=== PATIENT | female | born 1965 | race Two or more races ===

== ENCOUNTER 2016-11-27 19:51 | Observation (INO) | payer SELFPAY ==
[2016-11-27 20:51] LABS: ABSOLUTE NEUTROPHIL COUNT 9.7 K/mm3 (1.8-7.7); BASO % 0.2 % (0.2-1.0); EOS % 0.2 % (0.9-2.9); HEMATOCRIT 22.4 % (37.0-47.0); IMM NEUT # 0.1 K/mm3 (0-0.2); IMM NEUT% 0.4 % (0-1); LYMPH # 1.8 (1.0-4.8); MEAN CELL VOLUME 61.2 fl (81.0-99.0); MEAN CORPUSCULAR HEMOGLOBIN 15.3 pg (27.0-31.0); MEAN PLATELET VOLUME 9.4 fl (7.4-10.4); MONO # 1.5 (0.0-0.8); MONO % 11.3 % (4-12); NEUT % 73.9 % (43-75); PLATELET COUNT 316 K/mm3 (130-400); RED CELL DISTRIBUTION WIDTH 19.3 % (11.5-14.5)
[2016-11-27 20:57] LABS: HEMOGLOBIN 5.6 gm/l (12.0-16.0)
[2016-11-27 20:59] LABS: INR 0.98; PROTHROMBIN TIME 10.3 SECONDS (9.3-11.4)
[2016-11-27 21:03] LABS: ALBUMIN 3.5 gm/dL (3.5-5.7); CALCIUM 8.8 mg/dL (8.6-10.3)
--- NOTE | 2016-11-27 21:05 | RAD ---
History: Weakness. Comparison: 12/19/2015. Technique: 2 views Findings: 2 views of the chest demonstrate multilevel thoracic degenerative changes. The heart size is borderline prominent though appears to be stable from the appearance on prior exam. No consolidation, effusion or pneumothorax is seen. The hilar and mediastinal structures are stable. Impression: 1. Borderline cardiac size. 2. Multilevel thoracic degenerative changes.
[2016-11-27 21:19] LABS: ANISOCYTOSIS 1+; HYPOCHROMIA 3+; PLATELET ESTIMATE NORMAL (NORMAL)
[2016-11-27] MEDS ORDERED: PANTOPRAZOLE SODIUM 40 MG VIAL IV ONE (21:22)
[2016-11-27] MEDS ORDERED: SODIUM CHLORIDE 0.9% 500 ML IV PRN (21:49)
[2016-11-27] MEDS ORDERED: BLISTEX LIPSTICK 1 EACH TP PRN (21:52)
[2016-11-27] MEDS ORDERED: MENTHOL/CETYLPYRD 1 EACH LOZENGE PO PRN (21:52)
[2016-11-27] MEDS ORDERED: SODIUM CHLORIDE 0.9% 100 ML IV PRN (21:52)
[2016-11-27] MEDS ORDERED: ACETAMINOPHEN 325 MG TABLET PO PRN (21:52)
[2016-11-27 22:52] VITALS: BMI 32.9
[2016-11-27] MEDS ORDERED: BLOOD Y PLUMSET W/CASSETTE ONE (23:04)
[2016-11-27] MEDS ORDERED: SODIUM CHLORIDE 0.9% 500 ML ONE (23:04)
[2016-11-28] MEDS ORDERED: PUMP TUBING ONE (00:17)
[2016-11-28] MEDS ORDERED: BLOOD Y PLUMSET W/CASSETTE ONE ×2 (01:56→15:09)
[2016-11-28] MEDS: LACTATED RINGERS 1,000 ML IV SCH ×2 (04:13→10:53)
--- NOTE | 2016-11-28 06:25 | HP ---
LISETH ROSARIO [id number] : 1965 DATE OF ADMISSION: November 27, 2016 IDENTIFICATION: Ms. Rosario is a 51-year-old followed by Dr. Diego. CHIEF COMPLAINT: Feeling dizzy. HISTORY OF PRESENT ILLNESS: Ms. Rosario reports an extended period of feeling weak, dizzy and having poor exercise tolerance. She has previously been diagnosed with anemia and, in fact, received a transfusion of one unit of packed red blood cells in our emergency department last June or July, but did not have any further workup at that time. She went to urgent care today and was told that she was anemic and directed to come to the emergency department. On evaluation in the emergency department, she was found to have a hemoglobin of 5.6, hematocrit 22.4, and she was referred to the hospitalist service for transfusion. She does report frequent dyspepsia and reflux symptoms and has been taking asgl-yru-lguwkkd ranitidine which is somewhat helpful. She also reports heavy menstrual bleeding. REVIEW OF SYSTEMS: HEENT: Dizzy and lightheaded, sometimes faint almost to the point of passing out. She has had a headache today. No problems with ears, eyes, nose or throat. RESPIRATORY: Dyspnea especially with activity, no cough. CARDIAC: No chest pain or palpitations. GASTROINTESTINAL: Frequent dyspepsia and reflux symptoms. No nausea or vomiting. She denies diarrhea, constipation, hematochezia or melena. GENITOURINARY: Chronic frequency, no dysuria. Regular heavy menstrual periods lasting seven days and passing a lot of clots. Last menstrual period started November 01, 2016. MUSCULOSKELETAL: She has had swelling in her hands and feet in the last few days. CONSTITUTIONAL: Reports chills and always feeling cold. No recent weight change. PAST MEDICAL HISTORY: 1. Hiatal hernia and gastritis. She says this was diagnosed by CT scan and that she has not previously had endoscopy. 2. Anemia. 3. Anxiety. 4. Degenerative disc disease. PAST SURGICAL HISTORY: None. ALLERGIES: NONE. MEDICATIONS: She is not on any prescription medication but she does say that she takes ytxk-eko-jyopcrp ranitidine two to three tablets two to three times a day. HABITS: No current or past tobacco, alcohol or drugs. SOCIAL HISTORY: She lives in [place] with her daughters. She is single. FAMILY HISTORY: Positive for diabetes, hypothyroidism, hypertension and cerebrovascular disease. PHYSICAL EXAMINATION: GENERAL: This is a pleasant, mildly anxious, 51-year-old. She does appear pale. VITAL SIGNS: Temperature 99.5 degrees Fahrenheit, blood pressure 123/83, pulse 102, respiratory rate 16, oxygen saturation 100% on room air. HEENT: Pupils are equal, round and reactive. Extraocular muscles are intact. Oropharynx is moist. Full upper and lower artificial dentures in place. NECK: No adenopathy or thyromegaly. CHEST: Clear to auscultation. HEART: Is regular with 1 to 2/6 systolic murmur. ABDOMEN: Soft, there is no epigastric tenderness or tenderness elsewhere. Normal bowel tones. No organomegaly. EXTREMITIES: Trace edema in all four extremities. Good peripheral pulses. No cyanosis or clubbing. NEUROLOGIC: Alert and oriented. No focal motor deficits. LABORATORY DATA: White blood cell count is 13.2, hemoglobin and hematocrit 5.6 and 22.4, platelets 316. INR is 0.98. Sodium 138, potassium 3.8, chloride 105, CO2 24, BUN14, creatinine 0.8, glucose 136, albumin is 3.5, globulin 3.6. Liver enzymes are normal. RADIOLOGY: Chest x-ray, borderline cardiomegaly. Multilevel thoracic degenerative changes. ELECTROCARDIOGRAM: Electrocardiogram reported to show right bundle branch block. I have not been able to review that personally. ASSESSMENT: Ms. Rosario is a 51-year-old with symptomatic critical anemia. This could be due to gastrointestinal bleeding with her significant dyspepsia complaints or due to her heavy menstrual bleeding. PLAN: 1. Refer to observation on medical/surgical floor. 2. Transfuse two units packed red blood cells, PARQ conference held. 3. Check iron studies anticipating she will show iron deficiency and check TSH for thyroid function. 4. Consider consultation for upper endoscopy. 5. FULL CODE status. 6. Venous thromboembolism prophylaxis is not indicated. 7. She was started on pantoprazole in the emergency department. We will continue that treatment. 8. Check stool for occult blood.
[2016-11-28 06:27] LABS: HEMATOCRIT 24.6 % (37.0-47.0); HEMOGLOBIN 6.8 gm/l (12.0-16.0)
[2016-11-28] MEDS ORDERED: LIDOCAINE Viscous 2% 15 ML UDCUP ONE (07:54)
[2016-11-28] MEDS ORDERED: FENTANYL 100 MCG/2 ML VIAL ONE (07:54)
[2016-11-28] MEDS ORDERED: MIDAZOLAM HCL 5 MG/5 ML VIAL ONE (07:54)
[2016-11-28] MEDS ORDERED: LACTATED RINGERS 1,000 ML ONE (08:22)
[2016-11-28] MEDS ORDERED: PROPOFOL 20 ML IV ONE (08:31)
[2016-11-28] MEDS ORDERED: PANTOPRAZOLE 40 MG TABLET DR PO SCH (09:00)
--- NOTE | 2016-11-28 09:34 | PDOC36 ---
Provider Note Subject: [facility] Consultation Note: 51yo para-9, admitted last night with severe anemia. Pt had upper endoscopy this AM with no obvious source of bleeding. Pt denies any bloody stools. Pt reports having had heavy periods - with blood clots. Pt has regular interval monthly menses, however with heavy bleeding, and last 7-14 days, since 7 months ago. Pt had not had any workup for this. LMP 11/01/16 POBGYNx: Pt has had vaginal delivery x 9, denies abnormal pap / STDs. Had in her history taken OCPs and implant for contraception PMH: Anemia PSH: denies Meds: Iron Exam: Alert, appropriate, generally pale Heart: regular rate & rhythm Lungs: CTAB Abdomen: soft, nontender, nondistended, normal bowel sounds, no masses Pelvic: uterus mobile, nontender, 6w size, anteverted, no adnexal masses, no discharge/lesions, cervix palpably smooth Ext: nontender Recommendations: Hgb=6.8 this AM - would recommend transfusion 2 more units Start oral contraceptives on discharge - to start first day of next period Check pelvic ultrasound f/u with [facility] as outpatient Laboratory Tests 11/27/16 11/28/16 20:30 05:30 WBC 13.2 H RBC 3.66 L Hgb 5.6 L* 6.8 L Hct 22.4 L 24.6 L MCV 61.2 L MCH 15.3 L MCHC 25.0 L RDW 19.3 H Plt Count 316 Neut % (Auto) 73.9 Lymph % (Auto) 14.0 L Marin % (Auto) 11.3 Baso % (Auto) 0.2 Absolute Neuts (auto) 9.7 H Eosinophils % 0.2 L Hypochromia 3+ Platelet Estimate Normal Anisocytosis 1+ Microcytosis 3+ PT 10.3 INR 0.98 Sodium 138 Potassium 3.8 Chloride 105 Carbon Dioxide 24 Anion Gap 13 BUN 14 Creatinine 0.8 Estimated GFR 76 BUN/Creatinine Ratio 18 Glucose 136 H Calcium 8.8 Iron 11 L Ferritin 6.7 L Total Bilirubin 0.5 AST 16 ALT 12 Alkaline Phosphatase 59 Total Protein 7.1 Albumin 3.5 Globulin 3.6 H Albumin/Globulin Ratio 1.0 TSH 0.95 % Immature Granulocyt 0.4 Blood Type O POSITIVE Antibody Screen Negative Crossmatch See Detail
--- NOTE | 2016-11-28 10:06 | CONS ---
FRANCINE ROSARIO [id number] DATE OF CONSULTATION: November 28, 2016 CONSULTING PHYSICIAN: Jarad Jason M.D. REASON FOR CONSULTATION: 1. Anemia. 2. Acid reflux with dysphagia. HISTORY OF PRESENT ILLNESS: Francine Rosario is a 51-year-old female who was seen in the hospital in consultation on November 28, 2016. She was admitted last night with symptoms of dizziness. She was found to be profoundly anemic. She reports a history of fdc acid reflux. She reports dysphagia that has been going on for a long time. She reports no hematemesis. She has had no weight loss. She has had no obvious blood in her stools. She takes ranitidine two or three tablets up to three times a day. She has been told she has a hiatal hernia. She also has had heavy menstrual periods. To this point in her hospitalization, she has received two units of blood and her hemoglobin has changed from 5.6 to 6.8. She has had no blood per rectum or even melanotic stool. PAST MEDICAL HISTORY: 1. Anemia. 2. Anxiety. 3. Degenerative disc disease. PAST SURGICAL HISTORY: Tubal ligation. CURRENT MEDICATIONS: Ranitidine. ALLERGIES: NONE KNOWN. FAMILY HISTORY: Diabetes, hypertension, strokes. SOCIAL HISTORY: She has her son with her. She is single. She denies alcohol, tobacco or drug use. REVIEW OF SYSTEMS: CONSTITUTIONAL: No fevers or weight loss. EYES: No complaints. ENT: No complaints. PULMONARY: Dyspnea with exertion. CARDIAC: No complaints. GASTROINTESTINAL: As above. GENITOURINARY: No complaints. GYNECOLOGIC: As above. MUSCULOSKELETAL: She has had some swelling in her hands and feet. NEUROLOGIC: No complaints. ENDOCRINE: Always feels cold. PSYCHIATRIC: No complaints. PHYSICAL EXAM: VITAL SIGNS: Temperature is 98.4, pulse 90, blood pressure 104/63, respirations 18, oxygen saturation is 97% on room air. GENERAL: She is awake, alert, is in no distress. HEENT: Head atraumatic, normocephalic. Pupils are equal. Sclera nonicteric. Oropharynx, she has upper and lower dentures. No exudate or erythema seen. NECK: Is supple without lymphadenopathy or thyromegaly. LUNGS: Clear to auscultation bilaterally. Normal respiratory effort. HEART: Regular rate and rhythm. No murmurs are heard. ABDOMEN: Soft, nondistended. She has mild tenderness to palpation in the left upper quadrant. No masses are palpable. No organomegaly appreciated. PELVIC: Not performed. RECTAL: Not performed. EXTREMITIES: Show no cyanosis, clubbing or edema. NEUROLOGIC: She is alert, oriented. Sensation grossly intact at all extremities. PSYCHIATRIC: Shows no signs of anxiety or depression. Appears able to make informed medical decisions. LABORATORIES: White blood cell count on admission was 13.2, hemoglobin on admission was 5.6 now 6.8 this morning, platelets 316. Prothrombin time is 10.3, INR is 1. Sodium 138, potassium 3.8, chloride 105, carbon dioxide is 24, BUN is 14, creatinine 0.8, glucose 136, calcium 8.8. Iron is low at 11, ferritin is low at 6.7, total bilirubin 0.5, AST 16, ALT 12, alkaline phosphatase 59, albumin 3.5, TSH is 0.95. ASSESSMENT: 1. Anemia. 2. Acid reflux with dysphagia. 3. Dysmenorrhea. PLAN: We will take her for upper endoscopy this morning. We discussed the procedure. We discussed the risks of bleeding and infection and intestinal perforation. I told her with dysphagia that sometimes we can find a stricture that we can dilate. In the setting of acute anemia for a diagnostic procedure, I would not recommend that we try and dilate anything. She expressed understanding and gives informed consent. Cc: Gregory Diego M.D. Abdoul Jason M.D.
[2016-11-28] MEDS: SUCRALFATE 1 G TABLET PO SCH ×2 (10:53→16:32)
--- NOTE | 2016-11-28 13:50 | US ---
Name: LISETH ROSARIO Exam: Pelvic ultrasound Comparison: None Clinical history: Chronic anemia and menorrhagia Findings: Transabdominal and endovaginal imaging of the pelvis was performed. Visualized bladder is normal. Uterus is enlarged at 9.9 x 7.2 x 5.1 cm. The myometrium is very heterogeneous which may reflect minimal tiny leiomyomas, adenomyosis or a combination of the two. The endometrium is approximately 11 mm thick and is best seen endovaginally. The endometrium is heterogeneous and contains several tiny cystic spaces. Also, within the uterine cavity, there is a trace amount of fluid within the lower uterine segment and endocervical canal. Several small the both in cysts are present. There is minimal/physiologic free fluid. The right ovary measures 3.8 x 2.4 x 2.1 cm with a volume of 9.9 cc. The left ovary measures 4.5 x 2.9 x 2.6 centers with a volume of 17.6 cc. Small follicles are identified bilaterally. The left contains a dominant cyst measuring 2.6 x 2.2 x 1.9 cm. There is no torsion. Impression: 1. Mildly enlarged very heterogeneous uterus. Differential considerations include many small leiomyomas, adenomyosis or a combination of the two 2. Heterogeneous endometrium with multiple tiny cystic spaces. Cystic glandular hyperplasia is a consideration. Endometrial carcinoma is not excluded on this exam 3. 2.6 cm simple left ovarian cyst 4. Trace/normal free fluid within the pelvis Note: The above report was uploaded to [facility]'s electronic medical records system at 1345 hours.
[2016-11-28] MEDS ORDERED: SODIUM CHLORIDE 0.9% 500 ML IV PRN (14:17)
--- NOTE | 2016-11-28 14:17 | PDOC43 ---
- Subjective Chief Complaint: Anemia, menorrhagia. Patient reports tolerating blood well, but still kind of short of breath. Hb not above 7 yet. She would accept another unit of blood, but wishes to go home today. She reports tolerating OCP in the past well. She states she has had some problems tolerating iron orally. Notes pica (patrice). - Objective Vital Signs Temperature 98.7 F 11/28/16 13:57 Pulse Rate 90 11/28/16 13:57 Respiratory Rate 16 11/28/16 13:57 Blood Pressure 121/71 11/28/16 13:57 O2 Saturation by Pulse Oximetry 99 11/28/16 13:57 Oxygen Delivery Method Room Air Oxygen Flow Rate 0 Vital Signs Last 12 Hours Temp Pulse Resp BP Pulse Ox 11/28/16 13:57 98.7 F 90 16 121/71 99 11/28/16 13:36 16 11/28/16 11:03 72 124/80 99 11/28/16 10:38 80 119/76 99 11/28/16 10:03 75 119/67 98 11/28/16 09:33 75 117/75 98 11/28/16 09:03 97.8 F 75 16 99/58 97 11/28/16 08:00 98.4 F 90 18 104/63 97 11/28/16 07:25 16 11/28/16 03:54 97.9 F 90 16 109/70 100 11/28/16 03:24 98.8 F 90 16 117/69 100 11/28/16 02:54 98.0 F 85 16 109/70 100 11/28/16 02:24 98.9 F 86 16 109/70 100 11/28/16 02:09 98.9 F 86 16 107/66 100 Intake and Output 11/26/16 11/27/16 11/28/16 23:59 23:59 23:59 Intake Total 14 615 Output Total 450 Balance 14 165 General: Alert, Cooperative, No Acute Distress Lungs: Clear to Auscultation Bilaterally, Normal Air Movement Cardiovascular: Regular Rate and Rhythm Abdomen: Soft, Normal Bowel Sounds, No Distention Extremities: Edema Skin: No Normal Color (still pale.) Neurological: Normal Speech Psych/Mental Status: Normal Affect, Normal Mood Laboratory 11/28/16 05:30 Laboratory Tests 11/27/16 20:30 Iron 11 L Ferritin 6.7 L TSH 0.95 Current Medications: Current meds reviewed in EMR. Active Medications Acetaminophen (Tylenol) 650 mg PO Q6H PRN PRN Reason: Pain or Temperature > 100.5 F Benzocaine/Menthol (Cepacol) 1 each PO PRN PRN PRN Reason: Sore Throat Sodium Chloride (Sodium Chloride 0.9%) 500 mls @ 25 mls/hr IV .Q20H PRN PRN Reason: Blood Transfusion Last Admin: 11/27/16 23:13 Dose: 25 mls/hr Sodium Chloride (Sodium Chloride 0.9%) 100 mls @ 25 mls/hr IV PRN PRN PRN Reason: Flush Lactated Ringer's (Lactated Ringers) 1,000 mls @ 100 mls/hr IV .Q10H JUSTYN Last Admin: 11/28/16 10:53 Dose: Not Given Pantoprazole Sodium (Protonix) 40 mg PO DAILY [facility] Last Admin: 11/28/16 10:53 Dose: 40 mg Petrolatum/Paraffin/Mineral Oil (Blistex) 1 each TP PRN PRN PRN Reason: Dry and/or chapped lips Sodium Chloride (Normal Saline 10ml Flush) 10 ml IV Q8HR JUSTYN Last Admin: 11/28/16 10:53 Dose: Not Given Sodium Chloride (Normal Saline 10ml Flush) 10 ml IV PRN PRN Last Admin: 11/28/16 12:41 Dose: 10 ml Sucralfate (Carafate) 1 g PO ACBEDTIME [facility] Last Admin: 11/28/16 10:53 Dose: 1 g - Problems: Assessment/Plan (1) Anemia Qualifiers: Anemia type: iron deficiency Iron deficiency anemia type: chronic blood loss Qualifier Code: (D50.0) Iron deficiency anemia secondary to blood loss (chronic) Status: ChronicAssessment/Plan: Given 2 units PRBC. Anticipate iron supplementation, with dose Venofer, and one add'l unit of blood as her Hb is still low and she looks pale. (2) Menorrhagia Qualifiers: Menorrahagia type: with regular cycle Qualifier Code: (N92.0) Excessive and frequent menstruation with regular cycle Status: Chronic Assessment/Plan: Ultrasound reported normal, appreciate Dr Barnett's consultation. He recommends outpt follow up, will be on OCP for period control. VTE Prophylaxis: n/a Disposition: anticipate DC to home.
[2016-11-28] MEDS ORDERED: FERROUS GLUCONATE (38 Fe) 324 MG TABLET PO SCH (14:30)
[2016-11-28] MEDS ORDERED: IRON SUCROSE COMPLEX 200 MG in SODIUM CHLORIDE 0.9% 100 ML IV ONE (14:30)
[2016-11-28] MEDS ORDERED: SODIUM CHLORIDE 0.9% 500 ML ONE (15:09)
[2016-11-28 16:29] LABS: HELICOBACTER PYLORII DETECTION NEGATIVE (NEGATIVE)
[2016-11-28 17:36] VITALS: BP 111/78
--- NOTE | 2016-11-29 07:23 | DS ---
LISETH ROSARIO [id number] DATE OF ADMISSION: November 27, 2016 DATE OF DISCHARGE: November 28, 2016 DISCHARGE DIAGNOSES: Are: 1. Severe iron deficiency anemia. 2. 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 Jackson. 3. Right bundle branch block. 4. Reported dysmenorrhea. Pelvic ultrasound showing heterogenous uterus as well as heterogenous endometrium. 5. History of degenerative disc disease. 6. History of anxiety. REASON FOR ADMISSION: The patient is 51-year-old female with an extended period of feeling weak and dizzy and low activity tolerance. She had been previously diagnosed with anemia and received a transfusion of one unit in the fall of 2015, but did not have any further workup. She went to the urgent care the day of admission and was told she was anemic and directed to come to the emergency department. In the emergency room she was noted to have a hemoglobin of 5.6, hematocrit 22.4, and was referred to the hospitalist service for transfusion. Her MCV was 61.2 with an RDW of 19.3, INR 0.98, electrolytes normal, glucose 136, iron 11, ferritin 6.7, TSH 0.95. Hospitalist service admitted her and started her on two units of packed red blood cells transfusion. She was referred to Dr. Finesse Jackson who performed an upper endoscopy that showed a normal duodenum, biopsy was taken, a polyp found at the gastric antrum, biopsy taken, gastroesophageal junction was visualized, a hiatal hernia found in the esophagus with a severe esophagitis seen, biopsy taken, and Gloria's esophagus changes noted. Her Helicobacter pylori biopsy was negative. A transvaginal ultrasound was done to evaluate her complaints of heavy periods, and it showed mildly enlarged very heterogenous uterus. Differential considerations include many small leiomyoma, adenomyosis or a combination of the two, heterogenous endometrium with multiple tiny cystic spaces was noted, cystic glandular hyperplasia is a consideration. Endometrial carcinoma is not excluded on this exam. A 2.6 cm simple left ovarian cyst and trace normal free fluid in the pelvis. Consultation with Dr. Reynaldo Barnett was performed, and he performed an exam and recommended starting oral contraceptives on discharge to start the first day of the next period, and to follow up with gynecology as an outpatient along with checking the pelvic ultrasound. He also recommended transfusion of additional units. Her followup hemoglobin after transfusion went from 5.6 to 6.8. One unit was available so this was transfused but patient was exceedingly eager to be discharged so a second unit will not be able to be given at this time. She did receive 200 mg Venofer intravenous and appeared to have tolerated all this fairly well. She is anticipated to be discharged to home tonight. DISCHARGE MEDICATIONS: Are anticipated to be: 1. Ferrous gluconate 325 mg orally twice daily but substitution of any other iron is acceptable if she can tolerate this. 2. Ortho Novum 135/[address] Barnett. 3. Pantoprazole 40 mg orally daily is recommended for her to replace the Zantac she has been taking. 4. Carafate 1 gr orally before meals and at bedtime is prescribed. FOLLOWUP: Followup is requested with Dr. Reynaldo Barnett in the next two weeks and is requested she follow up with Dr. Diego for consideration of a repeat blood count. Dr. Jackson's office will call with biopsy results. She is also advised to consider colonoscopy as well as she is nearing age 52. She is advised to avoid smoking, avoid antiinflammatories. She is to return sooner if having weakness or shortness of breath as noted before. Cc: Gregory Diego M.D. Finesse Jackson M.D. Reynaldo Barnett M.D.
--- NOTE | 2016-12-02 12:27 | SURGPATH ---
[facility] [address] [place] [address] Patient Name: LISETH ROSARIO MR#: [id number] : 1965 Gender: F Specimen #: [id number] Collected: 11/28/2016 Received: 11/30/2016 Reported: 12/02/2016 Submitting Phys: HAVEN ELMORE Copy To Phys: KENYATTA EVANS [facility] SH[facility] GALVAN Clinical History / Pre-Operative Diagnosis: ANEMIA Specimen Source / Surgical Procedure Performed: #1-DUODENUM BIOPSY; #2-ANTRUM BIOPSY; #3-GASTRIC POLYP IN ANTRUM; #4-DISTAL ESOPHAGUS BIOPSY AT 30 CM Interpretation: 1. DUODENUM, BIOPSY: - PEPTIC DUODENITIS 2. STOMACH, ANTRUM, BIOPSY: - MODERATE CHRONIC NON-ATROPHIC GASTRITIS WITH MULTIFOCAL ACTIVITY - FOCAL INTESTINAL METAPLASIA; NO DYSPLASIA SEEN - NO HELICOBACTER ORGANISMS BY IMMUNOHISTOCHEMISTRY 3. STOMACH, ANTRUM, POLYP, BIOPSY: - MODERATE CHRONIC NONATROPHIC GASTRITIS WITH MULTIFOCAL ACTIVITY - REACTIVE FOVEOLAR HYPERPLASIA - NO HELICOBACTER ORGANISMS SEEN ON ROUTINE STAIN 4. ESOPHAGUS, DISTAL, BIOPSY: - ACUTE ESOPHAGITIS WITH ULCERATION AND MARKED REACTIVE CHANGES Electronically Signed Out By Rachel Mensah M.D. For Monique Clifford M.D. Gross Description: #1 The specimen is received in a formalin filled container labeled with the patient's name and "duodenum biopsy". Two siddiqui biopsies are 0.4 and 0.5 cm. Totally embedded in cassette #1. #2 The specimen is received in a formalin filled container labeled with the patient's name and "antral biopsy". Two siddiqui biopsies are 0.2 and 0.3 cm. Totally embedded in cassette #2. #3 The specimen is received in a formalin filled container labeled with the patient's name and "gastric polyp in antrum". A single polypoid pale siddiqui biopsy is 0.3 cm. Totally embedded in cassette #3. #4 The specimen is received in a formalin filled container labeled with the patient's name and "biopsy distal esophagus at 30 cm". Five gabriel biopsies are 0.2-0.4 cm. Totally embedded in cassette #4. Jose Juan Telles Microscopic Description: Part 1: Sections show mildly blunted villi with focal areas of gastric metaplasia, increased chronic inflammation within the lamina propria including numerous plasma cells, Elissa's gland hyperplasia, and active inflammation with cryptitis. No Giardia is seen. No increased intraepithelial lymphocytes are seen. Part 2: Sections show antral mucosa with moderate chronic inflammation the lamina propria along with multifocal acute inflammation. Helicobacter organisms are not seen on routine stain; an immunostain is also negative for organisms. No lymphoepithelial lesions or diffuse infiltration by atypical lymphocytes is seen. A small reactive follicle is present. Focal intestinal metaplasia is seen, without dysplasia. Part 3: Sections show antral mucosa with moderate chronic inflammation in the lamina propria. Acute inflammation is also seen. No Helicobacter organisms are seen on routine stain. No hyperplastic polyp, fundic gland polyp, or adenoma is identified. There is mild reactive foveolar hyperplasia. Part 4: Squamous mucosa is seen with ulceration and granulation tissue. A multinucleated degenerated cell is seen. HSV I/II immunostain cocktail and CMV immunostain are negative. A PAS stain is negative for fungal pseudohyphae. The residual squamous epithelium shows basilar hyperplasia and scattered neutrophils within the epithelium. Increased eosinophils are not seen. One area adjacent to an ulceration shows marked reactive epithelial changes. (Analyte-specific reagents (ASR) are used in many laboratory tests necessary for standard medical care and generally do not require FDA approval. This test was developed and its performance characteristics determined by [facility]. It has not been cleared or approved by the U.S. Food and Drug Administration. [facility] is certified under the Clinical Laboratory Improvement Amendments of 1988 as qualified to perform high complexity clinical laboratory testing. All controls stain as expected.) 1: 34244 2: 21789, 00309 3: 55640 4: 65282, 05227, 60130, 14167 K29.30 K29.80 K22.10
== END 2016-11-28 18:19 | disposition home or self-care (01) ==
LOC: ED 19:51 → MS 21:25
PROVIDERS: ADMIT Family Medicine; ATTEND Family Medicine
PROC: 30233N1 Transfusion of Nonautologous Red Blood Cells into Peripheral Vein, Percutaneous Approach (ICD-10-PCS; principal; 2016-11-27)
DX: D53.9 Nutritional anemia, unspecified (principal); K29.80 Duodenitis without bleeding; K22.70 Barrett's esophagus without dysplasia; I45.10 Unspecified right bundle-branch block; N94.6 Dysmenorrhea, unspecified; F41.9 Anxiety disorder, unspecified
CPT/HCPCS: 36430 ×2; 85025; 80053; 87081; 82728; 85014; 85018; 83540; 85610; 84443; 36415; 71020; 86920; 86922; 86921; 86901; 86850 ×3; 76856; 76830; 99284; 96374; 96375; 99285; A9270 ×5; J3010; J1756; C9113; J2250; J7120 ×2; J7040 ×3; J7050; P9016 ×3; G0378 ×2